=== PATIENT | male | born 1975 | race Two or more races ===

== ENCOUNTER 2019-01-21 16:55 | Emergency (ER) | payer SELFPAY ==
--- NOTE | 2019-01-21 17:01 | PDOC ---
History of Present Illness - General Chief Complaint: Pain Stated Complaint: ABD PAIN Time Seen by Provider: 01/21/19 17:01 History Source: Patient, Family - History of Present Illness Initial Comments: 01/21/19 17:41 Agapito Forbes is a 43yM previously healthy presenting with epigastric pain. Referred by PCP for concern of appendicitis. Pain started 3 months ago, intermittent, then became constant for the last 4 days. Pain worse after meals and at night. Did not take any meds for pain. Denies fever, SOB, chest pain, nausea, urinary/bowel mvmt changes. Past History - Past Medical History Allergies/Adverse Reactions: Allergies Allergy/AdvReac Type Severity Reaction Status Date / Time No Known Allergies Allergy Verified 01/21/19 17:06 Home Medications: Ambulatory Orders Esomeprazole Magnesium 20 mg PO ONCE 14 Days #14 capsule. 01/21/19 Review of Systems - Review of Systems Constitutional: No: Chills, Fever, Malaise HEENTM: No: Eye Pain, Nose Pain, Nose Bleeding, Hearing Loss, Mouth Pain Respiratory: No: Cough, Shortness of Breath Cardiac (ROS): No: Chest Pain, Edema, Lightheadedness, Palpitations, Syncope ABD/GI: No: Abdominal Distended, Constipated, Diarrhea, Nausea, Poor Appetite, Vomiting, Tarry Stools : No: Burning, Dysuria, Discharge, Frequency, Flank Pain, Hematuria Musculoskeletal: No: Back Pain, Joint Pain, Joint Swelling, Muscle Pain Integumentary: No: Bruising, Erythema, Flushing Neurological: No: Headache, Numbness, Seizure, Tingling, Tremors Psychiatric: No: Anxiety, Depression Endocrine: No: Excessive Sweating, Flushing, Intolerance to Cold, Intolerance to Heat Hematologic/Lymphatic: No: Anemia, Blood Clots *Physical Exam - Physical Exam General Appearance: Yes: Nourished, Appropriately Dressed. No: Apparent Distress HEENT: positive: Normal Voice, Hearing Grossly Normal. negative: EOMI, GAEL, Nasal Congestion, Rhinorrhea Respiratory/Chest: positive: Lungs Clear, Normal Breath Sounds. negative: Chest Tender, Respiratory Distress, Crackles, Rales, Rhonchi, Stridor, Wheezing Cardiovascular: positive: Regular Rhythm, Regular Rate, S1, S2. negative: Edema , Murmur Gastrointestinal/Abdominal: positive: Normal Bowel Sounds, Flat, Soft. negative : Tender, Pulsatile Mass, Distended, Guarding, Rebound, Hernia, Hepatomegaly, Spleenomegaly Male Genitalia: positive: normal genitalia. negative: discharge, testicular tenderness, testicular mass, epididymus tender, hernia Musculoskeletal: negative: CVA Tenderness (R), CVA Tenderness (L) Integumentary: positive: Normal Color Neurologic: positive: Fully Oriented, Alert, Normal Mood/Affect, Normal Response , Motor Strength 5/5, Responsive. negative: Numbness, Confused, Disoriented ED Treatment Course - LABORATORY CBC & Chemistry Diagram: 01/21/19 17:40 01/21/19 17:40 Medical Decision Making - Medical Decision Making 01/21/19 17:47 CBC CMP trop lipase UA EKG pepcid, maalox Agapito Forbes is a 43yM previously healthy presenting with epigastric pain. Pain d/ t GERD or gastric ulcers based on worsening after meals. Unlikely appendicitis due to epigastric pain presentation, ongoing pain for 3mo. ACS ruled out d/t normal EKG, negative trop. Normal CBC, CMP, UA. Pain improved with pepcid, maalox cocktail. D/c home with nexium prescription, GI outpatient follow up *DC/Admit/Observation/Transfer Diagnosis at time of Disposition: GERD (gastroesophageal reflux disease) Qualifiers: Esophagitis presence: without esophagitis Qualified Code(s): K21.9 - Gastro- esophageal reflux disease without esophagitis - Discharge Dispostion Disposition: HOME Condition at time of disposition: Improved Decision to Admit order: No - Prescriptions Prescriptions: Esomeprazole Magnesium 20 mg PO ONCE 14 Days #14 capsule.dr - Referrals Referrals: Marcial Shepherd MD [Staff Physician] - - Patient Instructions Printed Discharge Instructions: DI for Gastroesophageal Reflux Disease (GERD) Additional Instructions: You were seen in the ED for abdominal pain. Your lab workup did not show anything concerning. You likely have acid reflux. You do not have appendicitis Limit spicy and heavy foods. Take prescribed medication as directed. Follow up with your primary care doctor and Dr. Joao GARLAND following this visit. Come back to the ED if you are vomiting, have fever, or chest pain. Print Language: CROATIAN - Post Discharge Activity
[2019-01-21 17:16] VITALS: BMI 24.4
--- NOTE | 2019-01-21 17:28 | PDOC ---
Attending Attestation - Resident Resident Name: John Schuler - ED Attending Attestation I have performed the following: I have examined & evaluated the patient, The case was reviewed & discussed with the resident, I agree w/resident's findings & plan, Exceptions are as noted - HPI HPI: 01/21/19 17:25 43y M presents with intermittent LUQ pain that is intermittent for the past few months. pt notse the pain is intermittent, described as burning/sharp, duration lasts from minutes to hours, typically in the evenings, and sometimes with spicy foods (states he eats spicy foods commonly). Pt endorses occasional vomiting that is nbnb (last episode 3 days ago), denies any sob, diaphoresis, jackson, occurrence of pain with exertion, leg swelling, cough, hemotpysis, palptiations, diarrhea, melena, bpr,dysuria, frequency, numbnes/tingling/ weakness. Pt had seen his PMD who referred him to the ED to r/o appendicitis noknown famly hx of heart disease ROS: Constitutional - no reported Fever, Chills, HEENT: no reported vision changes, sore throat Respiratory: no reported cough, sob, hemoptysis Cardiac: no reported chest pain, palpitations, light headedness, leg swelling Abd/GI: no reported abd pain, nausea, vomiting, blood per rectum, melena, diarrhea : no reported dysuria, frequency, discharge Musculskelatal - no reported back pain, joint swelling skin - no reported bruising, erythema, rash neurological: no reported headache, numbness, focal weakness, tingling, ataxia, hematologic: no reported easy bruising, easy bleeding Exam: GENERAL: The patient is awake, alert, and fully oriented, Nontoxic - in no acute distress. HEAD: Normocephalic, atraumatic. EYES: extraocular movements intact, sclera anicteric, conjunctiva clear. ENT: Normal voice, Moist mucous membranes. NECK: Normal range of motion, supple LUNGS: Breath sounds equal, clear to auscultation bilaterally. No wheezes, no rhonchi, no rales. HEART: Regular rate and rhythm, normal S1 and S2 without murmur, rub or gallop. ABDOMEN: Soft, nontender, No guarding, no rebound. No CVA tenderness EXTREMITIES: Normal range of motion, no edema. NEUROLOGICAL: No facial assymetry, Normal speech, PSYCH: Normal mood, normal affect. SKIN: Warm, Dry, normal turgor, suspect gastritis/gerd consider acs - will obtain ekg/trop due to no focal ttp to suggest appendicitis lipase to r/o pancreatitis willtreat with pepcid/maalox - Physicial Exam PE: 01/24/19 07:37 see above - Medical Decision Making 01/21/19 18:46 labs reviewed - unreamrakbkle lipase neg pt feeling improvd abd reassessed and is soft notnender suspect his symptoms secondary to gastritis/gerd will treat accordingly will dc with Gi fu diet instructions given Heart Score/ECG Review - ECG Impressions Comment:: 01/21/19 18:46 Twelve-lead EKG was performed and reviewed by me. There is normal sinus rhythm with a normal rate. rate of 63 left ventricular hypertrophy No ST changes suggestive of acute ischemia
[2019-01-21] MEDS ORDERED: FAMOTIDINE 20 MG/50 ML IVPB 20 MG/50 ML MG IVPB ONE ×2 (17:30→17:33)
[2019-01-21] MEDS ORDERED: MAG HYDROX/AL HYDROX/SIMETH -MYLANTA- ORAL SUSPENSION PO ONE (17:30)
[2019-01-21 17:31] VITALS: BP 142/98; PULSE 65; TEMP 98.6
[2019-01-21] MEDS ORDERED: MAG HYDROX/AL HYDROX/SIMETH 30 ML UNIT-DOSE CUP ONE (17:33)
[2019-01-21 18:03] LABS: BASO % 0.7 % (0-2.0); HEMATOCRIT 42.3 % (35.4-49); HEMOGLOBIN 14.3 GM/dl (11.7-16.9); LYMPH % 29.2 % (8-40); MCHC 33.7 g/dl (32.0-35.9); MEAN PLT VOLUME 8.8 fl (7.5-11.1); MONO % 8.5 % (3.8-10.2); NEUT % 60.6 % (42.8-82.8); PLATELET COUNT 214 K/MM3 (134-434); RBC 4.46 M/mm3 (4.00-5.60); WHITE BLOOD COUNT 6.2 K/mm3 (4.0-10.8)
[2019-01-21 18:17] LABS: ALBUMIN 4.4 g/dl (3.4-5.0); BILIRUBIN,TOTAL 0.3 mg/dl (0.2-1); CALCIUM 9.4 mg/dl (8.5-10); CREATININE 0.9 mg/dl (0.55-1.3); POTASSIUM 4.1 mmol/L (3.5-5.1); TOT PROT 7.5 g/dl (6.4-8.2)
[2019-01-21] MEDS ORDERED: FLUORESCEIN NA 1 EA STRIP ONE (18:19)
--- NOTE | 2019-01-22 13:42 | EKG ---
Test Reason : Blood Pressure : / mmHG Vent. Rate : 063 BPM Atrial Rate : 063 BPM P-R Int : 166 ms QRS Dur : 094 ms QT Int : 376 ms P-R-T Axes : 059 000 026 degrees QTc Int : 384 ms NORMAL SINUS RHYTHM POSSIBLE LEFT ATRIAL ENLARGEMENT LEFT VENTRICULAR HYPERTROPHY ABNORMAL ECG NO PREVIOUS ECGS AVAILABLE Confirmed by Federico Iraheta MD ([id number]) on 01/22/2019 1:42:08 PM Referred By: DR COLEMAN Confirmed By:Federico Iraheta MD
== END 2019-01-21 19:03 | disposition home or self-care (01) ==
LOC: FER 16:55
PROC: 3E033GC Introduction of Other Therapeutic Substance into Peripheral Vein, Percutaneous Approach (ICD-10-PCS; principal; 2019-01-21)
DX: K21.9 Gastro-esophageal reflux disease without esophagitis (principal)
CPT/HCPCS: 36415; 80053; 81003; 82550; 82553; 83690; 84484; 85025; 93005; 99283-25